=== PATIENT | male | born 2000 ===

== ENCOUNTER 2022-11-17 03:42 | Emergency (ER) | payer SELFPAY ==
[~2022-11-17] VITALS: Ht 177.8 cm; Wt 97.7 kg
[2022-11-17 04:03] VITALS: BP 140/86
== END 2022-11-17 06:58 | disposition left against medical advice (07) ==
LOC: ER 03:43 → EDBD 03:43 → ER 06:58
DX: S81.812A Laceration without foreign body, left lower leg, initial encounter (principal); Z53.21 Procedure and treatment not carried out due to patient leaving prior to being seen by health care provider; X58.XXXA Exposure to other specified factors, initial encounter; Y93.89 Activity, other specified; Y92.89 Other specified places as the place of occurrence of the external cause; Y99.8 Other external cause status